=== PATIENT | female | born 2000 | race Caucasian/White ===

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

== ENCOUNTER → 2021-06-07 01:46 | Outpatient (CLI) | payer OTHER, MEDICAID, SELFPAY ==
[2021-06-07 17:55] LABS: SARS-CoV-2 RNA PCR Negative
== END ==
PROVIDERS: PCP Pediatrics; Visit Provider Pediatrics
DX: Z20.822 Contact with and (suspected) exposure to COVID-19 (principal)
CPT/HCPCS: C9803; U0003; U0005

== ENCOUNTER 2024-04-01 10:09 | Outpatient (CLI) | payer OTHER, SELFPAY ==
--- NOTE | ~2024-04-01 | US_ITS ---
EXAMINATION: US OB <=14 wk fetus w TV DATE: 04/01/2024 11:15 INDICATION: Confirm viability during first trimester . TECHNIQUE: Real-time pelvic ultrasound utilizing both a transvaginal and transabdominal probe was pe rformed. The interpreting radiologist was not present for the study. COMPARISON: None. FINDINGS: The uterus measures 10.2 x 4.2 x 5.5 cm. There is an intrauterine gestational sac. A yolk sac and fe jose elias pole are identified. The crown rump length measures 8 mm, which correlates with an estimated gest ational age of 6 weeks and 1 days. heart motion is identified measuring 129 beats per minute (b pm) by M-mode Doppler. The right ovary measures 3.0 x 1.7 x 1.6 cm. The left ovary measures 2.9 x 2.7 x 1.7 cm. Vascular jed w with arterial waveforms identified at both ovaries. There is no free fluid in the pelvis. IMPRESSION: 1. Single living fetus with heart rate of 129 bpm. 2. Gestational age by ultrasound of 6 weeks 1 day(s) +/- 4 day(s) with ultrasound estimated date of delivery (BREANNA) of 11/24/2024. Reviewed, dictated and finalized at location B. IMPRESSION: 1. Single living fetus with heart rate of 129 bpm. 2. Gestational age by ultrasound of 6 weeks 1 day(s) +/- 4 day(s) with ultraso und estimated date of delivery (BREANNA) of 11/24/2024.
== END 2024-04-01 10:10 | disposition home or self-care (01) ==
LOC: ANHIMG 10:13
PROVIDERS: PCP Pediatrics; Visit Provider Advanced Practice Midwife
DX: O36.80X0 Pregnancy with inconclusive fetal viability, not applicable or unspecified (principal); Z3A.00 Weeks of gestation of pregnancy not specified
CPT/HCPCS: 76801; 76817

== ENCOUNTER 2024-07-01 10:24 | Outpatient (CLI) | payer OTHER, SELFPAY ==
--- NOTE | ~2024-07-01 | US_ITS ---
EXAMINATION: US OB /maternal detail DATE: 07/01/2024 11:50 INDICATION: Encounter for screening. TECHNIQUE: Real-time ultrasound of the pelvis was performed. COMPARISON: Ultrasound 04/01/2024 FINDINGS: There is a single living fetus in vertex presentation. The placenta is anterior, 4.2 cm from the cer vix. heart rate is 139 beats per minute (bpm). The amniotic fluid index is 10.5, which is kai l. The cervical length is 3.0 cm on transabdominal images, which is normal. The following biometric data were obtained: Biparietal diameter (BPD): 4.5 cm; head circumference (HC): 17.0 cm; abdominal circumference (AC): 14 .3 cm; femur length (FL): 3.1 cm. These measurements are concordant. Estimated weight is 301 g +/- 45 g, which correlates with the 72nd percentile when 11/24/24 is u sed as estimated date of delivery. As single measurements, these parameters are each equal to the following estimated gestational ages: BPD: 19 weeks 5 days. HC: 19 weeks 4 days. AC: 19 weeks 4 days. FL: 19 weeks 3 days. estimated gestational age based solely on measurements from this exam is 19 weeks 4 days +/- 1 weeks 3 days. The cerebral ventricles, cerebellum, cisterna magna, nuchal fold, and spine are normal. The heart is normal. The diaphragm, stomach, kidneys, and bladder are normal. There are two umbilical arteries to yield a 3-vessel cord. The cord insertion is normal. IMPRESSION: 1. Single living fetus in vertex presentation. 2. Estimated weight is 301 g +/- 45 g, which correlates with the 72nd percentile when 11/24/24 is used as estimated date of delivery. This date was set by ultrasound on 04/01/2024. 3. Normal anatomic survey. Reviewed, dictated and finalized at location A. SHOVELER IMPRESSION: 1. Single living fetus in vertex presentation. 2. Estimated weight is 301 g +/- 45 g, which correlates with the 72nd pe rcentile when 11/24/24 is used as estimated date of delivery. This date was set by ultrasound on 04/01/2024. 3. Normal anatomic survey.
== END 2024-07-01 10:25 | disposition home or self-care (01) ==
PROVIDERS: PCP Pediatrics; Visit Provider Advanced Practice Midwife
DX: Z36.9 Encounter for antenatal screening, unspecified (principal)
CPT/HCPCS: 76805

== ENCOUNTER 2024-09-16 09:32 | Outpatient (CLI) | payer OTHER, SELFPAY | END 2024-09-16 09:33 | disposition home or self-care (01) | PROVIDERS: Visit Provider Nurse Practitioner Women's Health | DX: O36.63X0 Maternal care for excessive fetal growth, third trimester, not applicable or unspecified (principal); Z3A.00 Weeks of gestation of pregnancy not specified | CPT/HCPCS: 76816 ==

== ENCOUNTER 2024-10-22 23:03 | Observation (INO) | payer OTHER, SELFPAY ==
[2024-10-22 23:25] VITALS: PULSE 83; O2SAT 82
--- NOTE | 2024-10-22 23:25 | OBADM ---
This patient, Eun Johnson, admitted to the OB room Labor/Delivery/Recovery 105 for observation. Patient/family oriented to hospital policies and general routines including ID bracelet, bed and alarms, visiting hours, pain management, procedures, bathroom and other care routines, personal items, smoking policy, room service/diet, and visiting hours. Patient/Family are encouraged to report perceived risks to care and to ask questions if they do not understand what they are told or what they should do.
--- NOTE | 2024-10-22 23:25 | PC.NURSE ---
Addendum entered by Radha Claire RN 10/22/24 23:33: Abdomen palpates soft Original Note: Pt is a presenting to L&D with complaints of contractions every 10 minutes, rectal pressure and n/v since approx 2130 this evening. Pt denies any complications this . Pt denies any vaginal bleeding or LOF. Pt states she doesn't drink a lot of water and has had intercourse in the past 24 hours. Pt has been given marker and instructed to lorraine when she feels a contraction. Pt verbalizes understanding.
--- OUTSIDE RECORDS SUMMARY | 2024-10-22 23:25 | XMS_ITS | Clinical Summary ---
Author Organization [facility] Address [address] [place] [address] Care Team Providers Care Dielectric Press Operator Name Role Phone Tacho Uribe MD Primary Care Provider Allergies No known active allergies Medications dextroamphetamine/ amphetamine (ADDERALL ORAL) Take 20 mg by mouth daily Active acetaminophen (TYLENOL) 500 mg tablet Take 1-2 tablets (500-1,000 mg total) by mouth every 6 (six) hours as needed for pain (1 tablet for mild to moderate pain. 2 tablets for severe pain) 30 tablet 2 Active ibuprofen (ADVIL,MOTRIN) 600 mg tablet Take 1 tablet (600 mg total) by mouth every 6 (six) hours as needed for pain 15 tablet 2 Active ondansetron ODT (ZOFRAN-ODT) 4 mg disintegrating tablet Take 1 tablet (4 mg total) by mouth every 8 (eight) hours as needed for nausea or vomiting 20 tablet 3 Active benzonatate (TESSALON) 100 mg capsuleIndications :Cough Take 1 capsule (100 mg total) by mouth every 8 (eight) hours 21 capsule 3 Active albuterol HFA (PROVENTIL HFA,VENTOLIN HFA,PROAIR HFA) 90 mcg/actuation inhaler Inhale 2 puffs every 4 (four) hours as needed for shortness of breath 1 each 3 Active Active Problems No known active problems Social History Tobacco Use Types Packs/Day Years Used Date Smoking Tobacco: Never Assessed Personal Safety Answer Date Recorded Have you ever been in or are you currently in a harmful physical or emotional relationship or is someone making you feel afraid or unsafe? Denies 11/16/2023 Comments No Sex and Gender Information Value Date Recorded Sex Assigned at Not on file Legal Sex Female 6:50 AM DUMPMAN Gender Identity Not on file Sexual Orientation Not on file Obstetrics History Last Filed Vital Signs Vital Sign Reading Time Taken Comments Blood Pressure 115/80 11/16/2023 11:00 AM CDT Pulse 58 11/16/2023 11:00 AM CDT Temperature 36.7 C (98.1 F) 11/16/2023 11:00 AM CDT Respiratory Rate 18 11/16/2023 11:00 AM CDT Oxygen Saturation 98% 11/16/2023 11:00 AM CDT Inhaled Oxygen Concentration - - Weight 113.4 kg (250 lb) 11/16/2023 6:14 AM CDT Height 160 cm (5' 3 ) 11/16/2023 6:14 AM CDT Body Mass Index 44.29 11/16/2023 6:14 AM CDT Plan of Treatment Health Maintenance Due Date Last Done Comments Cervical Cancer Screening 2001 Depression Screening 2001 Hepatitis C Screening 2001 Regular Well Visit/Exam 18-64 2019 DTaP/Tdap/Td Vaccine (7 - Td or Tdap) 03/05/2023 03/05/2013, 02/21/2006, 05/30/2002, Additional history exists Covid-19 Vaccine (2 - 2023-2 5 season) 2024 09/20/2020 Influenza Vaccine (#1) 2024 8, 06/01/2017, 03/24/2016, Additional history exists Hepatitis B Screening Completed 03/06/2002 , 2001, 2001 Pneumococcal vaccine <65 Completed 002, 2001, 2001, Additional history exists Varicella Vaccines Completed 11/03/2008, 03/06/2002 HPV Vaccines Completed 03/24/2015, 03/05/2013 Meningococcal B Vaccine Completed 05/20/2018, 04/[address] [place] [address] [facility] Care Teams Dielectric Press Operator Relationship Specialty Start Date End Date Tacho Uribe MD [address] [place] [id number] PCP - General Pediatrics 09/21/20
--- OUTSIDE RECORDS SUMMARY | 2024-10-22 23:25 | XMS_ITS | Referral Summary ---
Author Organization [facility] Address [address] [place] [address] Care Team Providers Care Online Services Manager Name Role Phone Tacho Uribe MD Primary [...] on file Legal Sex Female 6:50 AM COMMUNITY DEVELOPMENT MANAGER Gender Identity Not on file Sexual Orientation Not on file Last Filed Vital Signs Vital Sign Reading [...] 11/16/2023 6:14 AM CDT Plan of Treatment Not on file Insurance Care Teams Online Services Manager Relationship Specialty Start Date End Date Tacho Uribe MD [address] [place] [address] PCP - General Pediatrics 09/21/20
[2024-10-22 23:30] VITALS: BP 131/87; PULSE 87; PULSE 92; O2SAT 99
[2024-10-22 23:33] VITALS: PULSE 92; O2SAT 100
[2024-10-22 23:35] VITALS: RESP 20; TEMP 36.6
[2024-10-22 23:38] VITALS: PULSE 85; O2SAT 100
[2024-10-22 23:41] VITALS: PULSE 102; O2SAT 100
--- NOTE | 2024-10-27 09:12 | PM.OBTRLD ---
OB - Triage/Final Diagnosis Visit Information Reason for evaluation: threatened labor Comments/Additional reasons for admission: I have assessed the risk for this patient, Eun Johnson, and determined that she would benefit from observation care.
== END 2024-10-22 23:55 | disposition home or self-care (01) ==
PROVIDERS: Admitting Provider Obstetrics & Gynecology Gynecology; Visit Provider Obstetrics & Gynecology Gynecology
DX: O47.03 False labor before 37 completed weeks of gestation, third trimester (principal); Z3A.36 36 weeks gestation of pregnancy
CPT/HCPCS: 59025; G0379

== ENCOUNTER 2024-10-27 07:15 | Outpatient (CLI) | payer OTHER, SELFPAY ==
--- NOTE | ~2024-10-27 | US_ITS ---
EXAMINATION: US OB follow up DATE: 10/27/2024 08:38 INDICATION: Expected size greater than expected for 36 weeks estimated gestational age TECHNIQUE: Real-time ultrasound of the pelvis was performed. The interpreting radiologist was not pre sent for the study. COMPARISON: 09/16/2024 FINDINGS: There is a single living fetus in vertex presentation. The placenta is anterior. heart rate is 132 beats per minute (bpm). The amniotic fluid index is 8.1 cm, which is normal. (5th%-95%: 7.7-24. 9 cm at 36 weeks estimated gestational age). The following biometric data were obtained: BPD: 8.5 cm -> 34 weeks 2 days Head circumference: 31.9 cm -> 36 weeks 0 days Abdominal circumference: 31.5 cm -> 35 weeks 3 days Femur length: 6.8 cm -> 35 weeks 1 days These measurements are concordant. Head circumference to abdominal circumference ratio: 1.01 (normal range 0.93-1.10). Estimated weight: 2640 g (+/-) 396 g or 5 lbs. 13 oz. (+/-) 14 oz. IMPRESSION: 1. Single living fetus in vertex presentation with heart rate of 132 bpm. 2. Normal amniotic fluid index of 8.1 cm. 3. Estimated weight is 31st percentile by Hadlock criteria when 11/24/2024 is used as the estima kwaku date of delivery (BREANNA). This is decreased from 66th percentile on study dated 09/16/2024. Please co rrelate with clinical information or earlier ultrasounds for most accurate BREANNA. Reviewed, dictated and finalized at location A. IMPRESSION: 1. Single living fetus in vertex presentation with heart rate of 132 bpm. 2. Normal amniotic fluid index of 8.1 cm. 3. Estimated weight is 31st percentile by Hadlock criteria when 11/24/2024 is used as the estimated date of delivery (BREANNA). This is decreased from 66th p ercentile on study dated 09/16/2024. Please correlate with clinical information o r earlier ultrasounds for most accurate BREANNA.
--- OUTSIDE RECORDS SUMMARY | 2024-10-27 07:22 | XMS_ITS | Referral Summary ---
Author Organization 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
--- OUTSIDE RECORDS SUMMARY | 2024-10-27 07:22 | XMS_ITS | Clinical Summary ---
Author Organization [facility] Address [address] [place] [address] Care Team Providers Care Diver Assistant Name Role Phone Tacho Uribe MD Primary [...] on file Legal Sex Female 6:50 AM CHARGE OPERATOR Gender Identity Not on file Sexual Orientation [...] Meningococcal B Vaccine Completed 05/20/2018, 04/[address] [place] [address] [place] [address] [facility] Care Teams Diver Assistant Relationship Specialty Start Date End Date Tacho Uribe MD [address] [place] [id number] PCP - General Pediatrics 09/21/20
== END 2024-10-27 07:16 | disposition home or self-care (01) ==
PROVIDERS: Visit Provider Obstetrics & Gynecology Gynecology
DX: O36.63X0 Maternal care for excessive fetal growth, third trimester, not applicable or unspecified (principal); Z3A.00 Weeks of gestation of pregnancy not specified
CPT/HCPCS: 76816

== ENCOUNTER 2024-10-28 11:38 | Outpatient (CLI) | payer OTHER, SELFPAY ==
[2024-10-28 12:07] LABS: Basophils Percent Auto 0.3 % (0.2-1.2); Eosinophils Absolute Auto 0.1 K/mm3 (0-0.3); Eosinophils Percent Auto 0.9 % (0-4.4); Hematocrit 36.3 % (37.0-47.0); Immature Granulocyte Absolute 0.07 K/mm3 (0.00-0.031); Immature Granulocyte Percent A 0.7 % (0-0.5); Lymphocytes Absolute Auto 1.87 K/mm3 (0.9-3.2); Lymphocytes Percent Auto 17.8 % (18.3-44.2); Mean Corpuscular HGB Conc 33.1 g/dl (32-36); Mean Corpuscular Hemoglobin 29.5 pg (26-34); Mean Corpuscular Volume 89.2 fl (80-100); Mean Platelet Volume 11.4 fl (7.4-10.4); Monocytes Absolute Auto 0.6 K/mm3 (0.1-0.6); Monocytes Percent Auto 5.4 % (2.6-8.5); Neutrophils Absolute Auto 7.9 K/mm3 (1.3-6.7); Neutrophils Percent Auto 74.9 % (45.5-73.1); Platelet Count Result 207 k/mm3 (150-375); Red Blood Count 4.07 M/mm3 (4.2-5.4); Red Cell Distribution Width 12.8 % (11.5-14.5); White Blood Count 10.5 K/mm3 (4.5-10.0)
[2024-10-28 12:08] LABS: Add Urine Microscopic? YES; Appearance Urine Turbid (Clear); Bacteria Urine None Seen /hpf; Bilirubin Urine Negative (Negative); Blood Urine 2+ (Negative); Color Urine Yellow (Yellow); Glucose Urine UA Negative (Negative); Ketones Urine Negative (Negative); Leukocyte Esterase Ur Negative LEU/UL (Negative); Nitrate Urine Negative (Negative); Non Pathogenic Casts 0-2; Protein Urine Trace mg/dL (Negative); RBC Urine 0-2 /hpf (0-2); Specific Grav Ur 1.019 (1.001-1.035); Squamous Epithelial Cell Urine Occasional /hpf (Few); WBC Urine 0-5 /hpf (0-3); pH Urine 7.5 (5.0-9.0)
[2024-10-28 12:16] LABS: Alanine Aminotransferase 12 U/L (6-35); Albumin Level 3.5 g/dL (3.5-5.1); Alkaline Phosphatase 164 U/L (38-126); Anion Gap 9 mmol/L (4-12); Aspartate Amino Transferase 17 U/L (14-36); Bilirubin,Total 0.4 mg/dL (0.2-1.3); Blood Urea Nitrogen 7 mg/dL (7-17); Carbon Dioxide 19 mmol/L (22-30); Chloride 108 mmol/L (98-107); Estimated Glomerular Filt Rate > 60; Glucose 117 mg/dL (65-110); Sodium 136 mmol/L (137-145)
[2024-10-28 12:17] VITALS: BP 121/68; PULSE 93
[2024-10-28 12:29] LABS: Creatinine Urine 104.9 mg/dL; Total Protein Urine Random 11 mg/dL
[2024-10-28 12:31] VITALS: BP 106/73; PULSE 100
--- NOTE | 2024-10-28 12:35 | PC.NURSE ---
Dr. Liriano notified of pt labs, urine and blood pressure. MD wants pt to start 24hour urine once pt bleeding has stopped. Dr. Kulkarni ok with pt going home.
[2024-10-28 12:45] VITALS: BP 121/68; PULSE 87
[2024-10-28 12:48] VITALS: BMI 48.4
--- OUTSIDE RECORDS SUMMARY | 2024-10-28 12:54 | XMS_ITS | Referral Summary ---
Author Organization [facility] Address [address] [place] [address] Care Team Providers Care President [employer] Name Role Phone Tacho Uribe MD Primary [...] on file Legal Sex Female 6:50 AM CARDIOVASCULAR OR NURSE Gender Identity Not on file Sexual Orientation [...] Treatment Not on file Insurance Care Teams President [employer] Relationship Specialty Start Date End Date Tacho Uribe MD [address] [place] [address] PCP - General Pediatrics 09/21/20
--- OUTSIDE RECORDS SUMMARY | 2024-10-28 12:54 | XMS_ITS | Clinical Summary ---
Author Organization [facility] Address [address] [place] [address] Care Team Providers Care Conservation Engineer Name Role Phone Tacho Uribe MD Primary [...] on file Legal Sex Female 6:50 AM PURIFICATION DIRECTOR Gender Identity Not on file Sexual Orientation [...] Meningococcal B Vaccine Completed 05/20/2018, 04/[address] [place] [address] [facility] Care Teams Conservation Engineer Relationship Specialty Start Date End Date Tacho Uribe MD [address] [place] [id number] PCP - General Pediatrics 09/21/20
== END 2024-10-28 12:45 | disposition home or self-care (01) ==
LOC: ANHOBOP 11:41 → ANHOBPP 11:49
PROVIDERS: Visit Provider Obstetrics & Gynecology Gynecology
DX: O26.899 Other specified pregnancy related conditions, unspecified trimester (principal); R03.0 Elevated blood-pressure reading, without diagnosis of hypertension
CPT/HCPCS: 36415; 59025; 80053; 81001; 82570; 84156; 84550; 85025; 99199

== ENCOUNTER 2024-10-29 20:47 | Outpatient (NON) | payer OTHER, SELFPAY ==
[2024-10-29 20:47] VITALS: BMI 48.3
--- OUTSIDE RECORDS SUMMARY | 2024-10-29 20:59 | XMS_ITS | Clinical Summary ---
Author Organization [facility] Address [address] [place] [address] Care Team Providers Care Nurse Staff Name Role Phone Tacho Uribe MD Primary [...] on file Legal Sex Female 6:50 AM ICT SUPPORT ENGINEER Gender Identity Not on file Sexual Orientation [...] Meningococcal B Vaccine Completed 05/20/2018, 04/[address] [place] [address] [place] [address] [facility] Care Teams Nurse Staff Relationship Specialty Start Date End Date Tacho Uribe MD [address] [place] [address] PCP - General Pediatrics 09/21/20
--- OUTSIDE RECORDS SUMMARY | 2024-10-29 20:59 | XMS_ITS | Referral Summary ---
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
[2024-10-29 22:03] LABS: Collection Time Urine 24 HOURS; Total Volume 24 Hour Urine 1000 ml
[2024-10-29 22:04] LABS: Patient Weight 290 Lbs
[2024-10-29 22:13] LABS: Total Protein Urine 24 Hr 100 mg/24hr (28-141); Total Protein Urine Random 10 mg/dL
[2024-10-29 22:16] LABS: Creatinine Clearance Urine 74.6 ml/min (75-125); Serum Creat 0.67
== END 2024-10-29 20:48 | disposition home or self-care (01) ==
LOC: ANHOBOP 20:58
PROVIDERS: Visit Provider Obstetrics & Gynecology Gynecology
DX: O13.9 Gestational [pregnancy-induced] hypertension without significant proteinuria, unspecified trimester (principal); Z3A.00 Weeks of gestation of pregnancy not specified
CPT/HCPCS: 81050; 82575; 84156

== ENCOUNTER 2024-11-01 23:46 | Outpatient (CLI) | payer OTHER, SELFPAY ==
--- OUTSIDE RECORDS SUMMARY | 2024-11-01 23:52 | XMS_ITS | Referral Summary ---
Author Organization [facility] Address [address] [place] [address] Care Team Providers Care Tax Accounting Assistant Name Role Phone Tacho Uribe MD [...] on file Legal Sex Female 6:50 AM INSIDE SALES ADMINISTRATOR Gender Identity Not on file Sexual Orientation [...] Treatment Not on file Insurance Care Teams Tax Accounting Assistant Relationship Specialty Start Date End Date Tacho Uribe MD [address] [place] [address] PCP - General Pediatrics 09/21/20
--- OUTSIDE RECORDS SUMMARY | 2024-11-01 23:52 | XMS_ITS | Clinical Summary ---
Author Organization [facility] Address [address] [place] [address] Care Team Providers Care Professional Fee Coder Name Role Phone Tacho Uribe MD Primary [...] on file Legal Sex Female 6:50 AM VIDEO LIBRARY ASSISTANT Gender Identity Not on file Sexual Orientation [...] Meningococcal B Vaccine Completed 05/20/2018, 04/[address] [address] [facility] Care Teams Professional Fee Coder Relationship Specialty Start Date End Date Tacho Uribe MD [address] [place] [id number] PCP - General Pediatrics 09/21/20
[2024-11-02 00:20] LABS: Add Urine Microscopic? NO; Appearance Urine Clear (Clear); Bilirubin Urine Negative (Negative); Blood Urine Negative (Negative); Color Urine Yellow (Yellow); Glucose Urine UA Negative (Negative); Ketones Urine Negative (Negative); Leukocyte Esterase Ur Negative LEU/UL (Negative); Nitrate Urine Negative (Negative); Protein Urine Negative (Negative); Specific Grav Ur 1.013 (1.001-1.035)
[2024-11-02 00:21] LABS: Basophils Percent Auto 0.3 % (0.2-1.2); Eosinophils Absolute Auto 0.1 K/mm3 (0-0.3); Hematocrit 36.3 % (37.0-47.0); Hemoglobin 12.3 g/dL (12.0-15.0); Immature Granulocyte Absolute 0.13 K/mm3 (0.00-0.031); Immature Granulocyte Percent A 1.1 % (0-0.5); Lymphocytes Absolute Auto 2.69 K/mm3 (0.9-3.2); Lymphocytes Percent Auto 22.2 % (18.3-44.2); Mean Corpuscular HGB Conc 33.9 g/dl (32-36); Mean Corpuscular Hemoglobin 29.4 pg (26-34); Mean Corpuscular Volume 86.6 fl (80-100); Mean Platelet Volume 11.4 fl (7.4-10.4); Monocytes Absolute Auto 0.9 K/mm3 (0.1-0.6); Monocytes Percent Auto 7.2 % (2.6-8.5); Neutrophils Absolute Auto 8.3 K/mm3 (1.3-6.7); Neutrophils Percent Auto 68.2 % (45.5-73.1); Platelet Count Result 225 k/mm3 (150-375); Red Blood Count 4.19 M/mm3 (4.2-5.4); Red Cell Distribution Width 12.5 % (11.5-14.5); White Blood Count 12.1 K/mm3 (4.5-10.0)
[2024-11-02 00:25] LABS: Creatinine Urine 79.8 mg/dL; Total Protein Urine Random 15 mg/dL; Ur Ttl Prot Creatinine Ratio 0.19 mg/mg (0-0.20)
[2024-11-02 00:37] LABS: Alanine Aminotransferase 12 U/L (6-35); Albumin Level 3.6 g/dL (3.5-5.1); Alkaline Phosphatase 177 U/L (38-126); Anion Gap 11 mmol/L (4-12); Aspartate Amino Transferase 16 U/L (14-36); Bilirubin,Total 0.3 mg/dL (0.2-1.3); Blood Urea Nitrogen 8 mg/dL (7-17); Calcium 8.9 mg/dL (8.4-10.2); Carbon Dioxide 18 mmol/L (22-30); Chloride 105 mmol/L (98-107); Estimated Glomerular Filt Rate > 60; Glucose 102 mg/dL (65-110); Potassium 3.8 mmol/L (3.4-5.0); Sodium 134 mmol/L (137-145); Uric Acid 5.2 mg/dL (2.5-7.5)
[2024-11-02 01:23] VITALS: BP 138/69; PULSE 94
[2024-11-02 01:33] LABS: OBXCEM ROM Plus Negative (Negative)
== END 2024-11-02 01:15 | disposition home or self-care (01) ==
LOC: ANHOBOP 23:51 → ANHLDR 23:53
PROVIDERS: Visit Provider Obstetrics & Gynecology Gynecology
DX: O26.899 Other specified pregnancy related conditions, unspecified trimester (principal); R51.9 Headache, unspecified; Z3A.00 Weeks of gestation of pregnancy not specified
CPT/HCPCS: 36415; 59025; 80053; 81003; 82570; 84112; 84156; 84550; 85025; 99199

== ENCOUNTER 2024-11-10 17:35 | Outpatient (CLI) | payer OTHER, SELFPAY ==
[2024-11-10] VITALS (14 sets, daily range): BP systolic 120–131; BP diastolic 65–76; PULSE 77–101; O2SAT 94–100; BMI 48.2
[2024-11-10 18:21] LABS: Basophils Percent Auto 0.3 % (0.2-1.2); Eosinophils Absolute Auto 0.2 K/mm3 (0-0.3); Eosinophils Percent Auto 2.2 % (0-4.4); Hematocrit 36.5 % (37.0-47.0); Immature Granulocyte Absolute 0.08 K/mm3 (0.00-0.031); Immature Granulocyte Percent A 0.7 % (0-0.5); Lymphocytes Absolute Auto 2.04 K/mm3 (0.9-3.2); Lymphocytes Percent Auto 19.1 % (18.3-44.2); Mean Corpuscular HGB Conc 32.9 g/dl (32-36); Mean Corpuscular Hemoglobin 29.2 pg (26-34); Mean Corpuscular Volume 88.8 fl (80-100); Monocytes Absolute Auto 0.9 K/mm3 (0.1-0.6); Monocytes Percent Auto 8.6 % (2.6-8.5); Neutrophils Absolute Auto 7.4 K/mm3 (1.3-6.7); Neutrophils Percent Auto 69.1 % (45.5-73.1); Platelet Count Result 221 k/mm3 (150-375); Red Blood Count 4.11 M/mm3 (4.2-5.4); White Blood Count 10.7 K/mm3 (4.5-10.0)
[2024-11-10 18:23] LABS: Add Urine Microscopic? NO; Appearance Urine Clear (Clear); Bilirubin Urine Negative (Negative); Blood Urine Negative (Negative); Color Urine Yellow (Yellow); Glucose Urine UA Negative (Negative); Ketones Urine Negative (Negative); Leukocyte Esterase Ur Negative LEU/UL (Negative); Nitrate Urine Negative (Negative); Protein Urine Negative (Negative); Specific Grav Ur 1.011 (1.001-1.035); Urobilinogen Urine 0.2 mg/dL (<2.0)
[2024-11-10 18:29] LABS: Creatinine Urine 70.7 mg/dL; Total Protein Urine Random 9 mg/dL; Ur Ttl Prot Creatinine Ratio 0.13 mg/mg (0-0.20)
[2024-11-10 18:33] LABS: Alanine Aminotransferase 12 U/L (6-35); Albumin Level 3.5 g/dL (3.5-5.1); Alkaline Phosphatase 206 U/L (38-126); Anion Gap 8 mmol/L (4-12); Aspartate Amino Transferase 15 U/L (14-36); Bilirubin,Total 0.4 mg/dL (0.2-1.3); Blood Urea Nitrogen 6 mg/dL (7-17); Calcium 8.8 mg/dL (8.4-10.2); Carbon Dioxide 20 mmol/L (22-30); Chloride 105 mmol/L (98-107); Estimated CRCL calculation 187 ml/min; Estimated Glomerular Filt Rate > 60; Glucose 94 mg/dL (65-110); Potassium 3.9 mmol/L (3.4-5.0); Sodium 133 mmol/L (137-145); Uric Acid 5.2 mg/dL (2.5-7.5)
--- OUTSIDE RECORDS SUMMARY | 2024-11-10 18:35 | XMS_ITS | Clinical Summary ---
Author Organization [facility] Address [address] [place] [address] Care Team Providers Care Transverse Abdominal Muscle Surgeon Name Role Phone Tacho Uribe MD Primary [...] on file Legal Sex Female 6:50 AM BEAM DOFFER Gender Identity Not on file Sexual Orientation [...] Meningococcal B Vaccine Completed 05/20/2018, 04/[address] [place] [address] [place] [address] [facility] Care Teams Transverse Abdominal Muscle Surgeon Relationship Specialty Start Date End Date Tacho Uribe MD [address] [place] [id number] PCP - General Pediatrics 09/21/20
--- OUTSIDE RECORDS SUMMARY | 2024-11-10 18:35 | XMS_ITS | Referral Summary ---
Author Organization [facility] Address [address] [place] [address] Care Team Providers Care Gravel Screener Name Role Phone Tacho Uribe MD Primary [...] on file Legal Sex Female 6:50 AM NUTRITION SERVICES MANAGER Gender Identity Not on file Sexual [...] Treatment Not on file Insurance Care Teams Gravel Screener Relationship Specialty Start Date End Date Tacho Uribe MD [address] [place] [address] PCP - General Pediatrics 09/21/20
--- NOTE | 2024-11-10 18:58 | PC.NURSE ---
Called Dr. Liriano, update on pt, headache, swelling, discoloration in feet, nausea, blood pressure, tracing, and labs. Orders received to discharge pt with instructions to take Tylenol 1000 mg every six hours as needed for headache, rest, keep next scheduled appointment, and when to return to the unit.
--- NOTE | 2024-11-10 19:08 | PC.NURSE ---
Pt discharged with instructions to take Tylenol 1000 mg every six hours as needed for headache, rest, keep next scheduled appointment, and when to return to the unit, pt denied taking hypertension in handout, pt verbalizes understanding.
--- OUTSIDE RECORDS SUMMARY | 2024-11-11 06:58 | XMS_ITS | Referral Summary ---
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
--- OUTSIDE RECORDS SUMMARY | 2024-11-11 06:58 | XMS_ITS | Clinical Summary ---
Author Organization [facility] Address [address] [place] [address] Care Team Providers Care Audio Visual Facilities Engineer Name Role Phone Tacho Uribe MD [...] on file Legal Sex Female 6:50 AM CAT SCANNER OPERATOR Gender Identity Not on file Sexual [...] Meningococcal B Vaccine Completed 05/20/2018, 04/[address] [place] [address] [facility] Care Teams Audio Visual Facilities Engineer Relationship Specialty Start Date End Date Tacho Uribe MD [address] [place] [id number] PCP - General Pediatrics 09/21/20
--- OUTSIDE RECORDS SUMMARY | 2024-11-11 07:35 | XMS_ITS | Referral Summary ---
Author Organization [facility] Address [address] [place] [address] Care Team Providers Care Blade Groover Name Role Phone Tacho Uribe MD Primary [...] on file Legal Sex Female 6:50 AM A P SUPERVISOR Gender Identity Not on file Sexual Orientation [...] Treatment Not on file Insurance Care Teams Blade Groover Relationship Specialty Start Date End Date Tacoh Uribe MD [address] [place] [address] PCP - General Pediatrics 09/21/20
--- OUTSIDE RECORDS SUMMARY | 2024-11-11 07:35 | XMS_ITS | Clinical Summary ---
Author Organization [facility] osp[facility] Address [address] [place] [address] Care Team Providers Care Breeding Technician Name Role Phone Tacho Uribe MD Primary [...] on file Legal Sex Female 6:50 AM EVENT ORGANIZER Gender Identity Not on file Sexual Orientation [...] Meningococcal B Vaccine Completed 05/20/2018, 04/[address] [place] [address] [facility] Care Teams Breeding Technician Relationship Specialty Start Date End Date Tacho Uribe MD [address] [place] [id number] PCP - General Pediatrics 09/21/20
== END 2024-11-10 19:08 | disposition home or self-care (01) ==
LOC: ANHOBPP 19:37 → ANHOBOP 11-11 07:28 → ANHOBPP 11-11 07:28
PROVIDERS: Visit Provider Obstetrics & Gynecology Gynecology
DX: O13.9 Gestational [pregnancy-induced] hypertension without significant proteinuria, unspecified trimester (principal); Z3A.00 Weeks of gestation of pregnancy not specified
CPT/HCPCS: 36415; 59025; 80053; 81003; 82570; 84156; 84550; 85025; 99199

== ENCOUNTER 2024-11-17 00:01 | Inpatient (IN) | payer OTHER, SELFPAY ==
[2024-11-17] VITALS (350 sets, daily range): BP systolic 83–138; BP diastolic 36–97; PULSE 59–160; TEMP 36.3–37.3; O2SAT 91–100; BMI 49.5
--- OUTSIDE RECORDS SUMMARY | 2024-11-17 00:07 | XMS_ITS | Referral Summary ---
Author Organization [facility] o[facility] Address [address] [place] [address] Care Team Providers Care Worm Sorter Name Role Phone Tacho Uribe MD Primary [...] on file Legal Sex Female 6:50 AM ASSISTANT MEDIA BUYER Gender Identity Not on file Sexual Orientation [...] Treatment Not on file Insurance Care Teams Worm Sorter Relationship Specialty Start Date End Date Tacho Uribe MD [address] [place] [address] PCP - General Pediatrics 09/21/20
--- OUTSIDE RECORDS SUMMARY | 2024-11-17 00:07 | XMS_ITS | Clinical Summary ---
Author Organization 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
--- NOTE | 2024-11-17 00:17 | LDADM ---
This patient, Eun Johnson, was admitted to Labor/Delivery/Recovery 105 on 11/17/24 at 00:01. Plans for labor, pain management and were discussed with patient. Patient/family oriented to hospital policies and general routines including ID bracelet, bed and alarms, visiting hours, pain management, procedures, bathroom and other care routines, personal items, smoking policy, room service/diet and guest tray routines, security routines, and visiting hours. Patient/Family are encouraged to report perceived risks to care and to ask questions if they do not understand what they are told or what they should do. See OBIX for further documentation.
[2024-11-17] MEDS: DINOPROSTONE 10 MG VAG INSERT VAGINAL (00:30)
[2024-11-17 00:38] LABS: Basophils Absolute Auto 0.1 K/mm3 (0.0-0.1); Basophils Percent Auto 0.5 % (0.2-1.2); Eosinophils Absolute Auto 0.3 K/mm3 (0-0.3); Hemoglobin 12.4 g/dL (12.0-15.0); Immature Granulocyte Absolute 0.11 K/mm3 (0.00-0.031); Lymphocytes Absolute Auto 2.43 K/mm3 (0.9-3.2); Lymphocytes Percent Auto 21.5 % (18.3-44.2); Mean Corpuscular HGB Conc 33.5 g/dl (32-36); Mean Corpuscular Hemoglobin 29.4 pg (26-34); Mean Corpuscular Volume 87.7 fl (80-100); Mean Platelet Volume 11.7 fl (7.4-10.4); Monocytes Percent Auto 8.6 % (2.6-8.5); Neutrophils Absolute Auto 7.4 K/mm3 (1.3-6.7); Neutrophils Percent Auto 65.4 % (45.5-73.1); Platelet Count Result 213 k/mm3 (150-375); Red Blood Count 4.22 M/mm3 (4.2-5.4); Red Cell Distribution Width 12.8 % (11.5-14.5); White Blood Count 11.3 K/mm3 (4.5-10.0)
[2024-11-17 01:28] LABS: HIV 1/2 Ab P24 Ag Result Negative (Negative)
[2024-11-17 01:31] LABS: Syphilis IgG/IgM Antibody Negative (Negative)
[2024-11-17] MEDS: OXYTOCIN 30 UNITS/NS 500 ML 30 UNITS/500 ML BAG 6 UNITS IV CONT (06:24)
[2024-11-17] MEDS: LACTATED RINGERS 1,000 ML 125 ML IV CONT ×3 (06:25→14:46)
--- NOTE | 2024-11-17 08:49 | WPDOBADMIT ---
Obstetrics - Admit Note Admission Note: record reviewed. No pertinent additions to the history and/or any subsequent changes in the physical findings that are not consistent with the expected course of the were found. Additions to the history and/or subsequent changes in the physical findings follow. Here for MIL. Cervix 150/-2. AROM with clear fluid. FHTs reactive. Continue MIL with pitocin.
[2024-11-17] MEDS: fentaNYL CITRATE INJ (*CRX) 100 MCG/2 ML VIAL 50 MCG IV PUSH (11:57)
--- NOTE | 2024-11-17 14:38 | P.PNAN_ITS ---
Anes - Initial Pre Proc Eval Date/Time: 11/17/24 14:38 Surgeon: Heidy Liriano MD Pre Op Diagnosis: IOL Patient Data Age: 24 Gender: F Height: 1.65 m Weight: 135 kg Last Vital Signs Temp 36.7 C 11/17/24 10:30 Pulse 76 11/17/24 14:30 BP 121/59 L 11/17/24 14:30 Pulse Ox 96 11/17/24 14:33 Allergies Allergy/AdvReac Type Severity Reaction Status Date / Time No Known Allergies Allergy Mild Verified 11/10/24 18:09 Home Medications ?Medication ?Instructions ?Recorded ?Confirmed ?Type vit no.95-ferrous 1 tablet PO DAILY 11/10/24 11/10/24 History fumarate 28 mg-folic acid 800 mcg tablet () Laboratory Tests 11/17/24 00:29 WBC 11.3 H K/mm3 (4.5-10.0) RBC 4.22 M/mm3 (4.2-5.4) Hgb 12.4 g/dL (12.0-15.0) Hct 37.0 % (37.0-47.0) MCV 87.7 fl (80-100) MCH 29.4 pg (26-34) MCHC 33.5 g/dl (32-36) RDW 12.8 % (11.5-14.5) Plt Count 213 k/mm3 (150-375) MPV 11.7 H fl (7.4-10.4) Immature Gran % (Auto) 1.0 H % (0-0.5) Neut % (Auto) 65.4 % (45.5-73.1) Lymph % (Auto) 21.5 % (18.3-44.2) Lumpkin % (Auto) 8.6 H % (2.6-8.5) Eos % (Auto) 3.0 % (0-4.4) Baso % (Auto) 0.5 % (0.2-1.2) Lymph # (Auto) 2.43 K/mm3 (0.9-3.2) Lumpkin # (Auto) 1.0 H K/mm3 (0.1-0.6) Eos # (Auto) 0.3 K/mm3 (0-0.3) Baso # (Auto) 0.1 K/mm3 (0.0-0.1) Abs Immat Gran (auto) 0.11 H K/mm3 (0.00-0.031) Absolute Neuts (auto) 7.4 H K/mm3 (1.3-6.7) Absolute Nucleated RBC 0.000 K/mm3 (0.0-0.012) Nucleated RBC % 0.0 % (0.0-0.2) Syphilis IgG/IgM Ab Negative (Negative) HIV 1&2 Ab/P24 Ag 4thGn Negative (Negative) Blood Type O Positive Antibody Screen Negative Patient hx anesthesia problems: none Family hx anesthesia problems: none Results Review: All pre-operative results and documents have been reviewed as part of the pre- operative evaluation. [facility] Family History Family History Grandparent Ovarian cancer Father Diabetes mellitus Grandparent No problems noted. Other No problems noted. Sibling Down's syndrome Social History Social History Smoking status: Never smoker Substance use: never Do You Feel Safe in your Home?: Yes Lack of Transportation: No Lack of Food: Never True Current Housing: I Have Housing Concerned About Future Housing: No Difficulty Paying Gas/Electric Bills: No Difficulty Paying for Meds: No Currently Unemployed: No Education: High School Diploma/GED Difficulty w/ Childcare or Family Care: No Spiritual care concerns: No Anes - Eval Final PreProcedure Day of Procedure 11/17/24 14:38 Patient weight: morbidly obese Heart: regular rate and rhythm Lungs: clear to auscultation Neurological: alert and oriented ASA classification: III Emergent: no Anesthetic plan: proceed Anesthesia type and monitoring: regional epidural and standard monitoring Results Review: All pre-operative results and documents have been reviewed as part of the pre- operative evaluation. Informed Consent: The patient's anesthetic plan and its attendant risks and benefits were discussed with the patient/family/POA. Questions were solicited and answers provided to the satisfaction of the patient/family/POA.
[2024-11-17] MEDS: SODIUM CHLORIDE 0.9% IV 300 ML 600 ML I-UTERINE (18:29)
[2024-11-17] MEDS: SODIUM CHLORIDE 0.9% IV 1,000 ML 150 ML I-UTERINE (19:05)
[2024-11-17] MEDS: ACETAMINOPHEN 500 MG TABLET 1000 MG PO (22:31)
[2024-11-18] VITALS (52 sets, daily range): BP systolic 63–138; BP diastolic 49–86; PULSE 80–171; RESP 16–18; TEMP 36.6–36.8; O2SAT 97–100
--- NOTE | 2024-11-18 00:52 | P.PCNOB_ITS ---
OB - Vaginal Delivery Note Procedure Delivery date: 11/18/24 Events: Elective Induction of Labor Induction method: AROM and Per Pitocin Protocol Delivery monitor: Internal FHT and Internal Uterine Route of delivery: Laceration Description: Periurethral and Superficial Delivery repair: vicryl (3-0 ) Specimen: Yes (placenta) Quantitative Blood Loss (ml): 350 Anesthesia type: Epidural Disposition: Floor Complications: No immediate complications [place] Baby Date of : 11/18/24 Gestational Age by Date: 39 Infant gender: Male presentation: vertex position: Right Occiput Anterior Placenta delivery description: Spontaneous Cord Vessel Description: 3 Vessels, Nuchal Cord, Tight, Delayed Cord Clamping, Around Body, Around Extremity and Other (cord around neck, body, and through legs and around leg-tight at delivery) score one minute: 7 score five minutes: 9
--- NOTE | 2024-11-18 00:54 | PM.OBDSVD ---
DS: Admitting Diagnosis Discharge Date 11/19/24 Admitting Diagnosis Iup 39 wks for ROSA ISELA DS: Discharge Diagnosis Discharge Diagnosis (1) (normal spontaneous vaginal delivery): Code(s): O80 - Encounter for full-term uncomplicated delivery Status: Acute OB - DS: Summary OB Procedures : Ultrasound OB Procedures Intrapartum: Spontaneous Vag Delivery OB Procedures: : None Peripartum Data Infant Delivery Method: Natural Vaginal Laceration Description: Periurethral and Superficial complications: none Status at Discharge Functional status at discharge: independent ambulation Overall status at discharge: patient is progressing back to baseline Time Spent with Patient Time attestation: Total time spent providing and/or coordinating discharge services: DS: Data Data Completed and Pending Labs on day of discharge: Labs from last 24 hours 11/17/24 00:29 Syphilis IgG/IgM Ab Negative HIV 1&2 Ab/P24 Ag 4thGn Negative Blood Type O Positive Antibody Screen Negative Discharge Plan Discharge Attending physician on discharge: Heidy Liriano Discharging Clinician: Heidy Liriano Anticipated Discharge Date/Time: 11/20/24 00:54 Patient Disposition: Home Activity: may shower and pelvic rest Diet: regular Patient Instructions: Antibiotic Form Patient Language: Amharic Stand Alone Forms: General Discharge Information Follow-up/Referrals: Heidy Liriano MD [Physician] - 6 Weeks Discharge Medications: Continued PNV cmb#95-ferrous fumarate-FA [] 28 mg iron- 800 mcg tablet 1 tablet PO DAILY Date of admission: 11/17/24 00:01 Primary Care Provider: UNKNOWN,DOCTOR Admitting Provider: Heidy Liriano Attending physician on admission: Heidy Liriano Condition: Stable Care Plan Goals: Plans condoms until Liletta IUD placed
[2024-11-18] MEDS: OXYTOCIN 30 UNITS/NS 500 ML 30 UNITS/500 ML BAG 125 UNITS IV CONT (01:41)
[2024-11-18] MEDS: BENZOCAINE 20% AER SPR (*SP) 56 GM CAN 1 SPRAY TOPICAL (03:31)
[2024-11-18] MEDS: WITCH HAZEL 40 PADS 1 PAD TOPICAL (03:32)
--- NOTE | 2024-11-18 12:17 | P.PNOB_ITS ---
OB - PN: Subj Subjective Date/time seen: 11/18/24 12:17 Patient comments: no complaints and pain well controlled baby status: doing well OB - PN: Obj Data Labs 11/17/24 00:29 OB - PN A/P Plan day: 0 Plan: routine care Time Spent With Patient Time: Total time spent is greater than 50% in coordination of care (as documented) at patient's floor/unit and/or counseling patient: Exam 2 : Bimanual exam- vagina & uterus: other (Uterus firm, nt @U)
[2024-11-18] MEDS: IBUPROFEN 600 MG TABLET PO (13:28)
[2024-11-18] MEDS: DOCUSATE SODIUM 100 MG CAPSULE PO (15:53)
[2024-11-19 05:19] LABS: Hematocrit 33.9 % (37.0-47.0); Hemoglobin 10.8 g/dL (12.0-15.0)
[2024-11-19] MEDS: IBUPROFEN 600 MG TABLET PO (07:03)
[2024-11-19 07:35] VITALS: BP 116/66; PULSE 88; RESP 16; TEMP 36.6; O2SAT 99
--- NOTE | 2024-11-19 07:35 | P.PNOB_ITS ---
OB - PN: Subj Subjective Date/time seen: 11/19/24 07:35 Patient comments: no complaints and pain well controlled baby status: doing well OB - PN: Obj Data Labs 11/19/24 03:59 Labs: Laboratory Results - last 24 hr 11/19/24 03:59 Hgb 10.8 L Hct 33.9 L OB - PN A/P Plan day: 1 Plan: routine care, discharge home, follow up 6 weeks and other (Plans Liletta IUD) Time Spent With Patient Time: Total time spent is greater than 50% in coordination of care (as documented) at patient's floor/unit and/or counseling patient: Exam 2 : Bimanual exam- vagina & uterus: other (Uterus firm, nt @U)
--- NOTE | 2024-11-19 07:56 | PC.NURSE ---
Patient viewed the discharge video Mother & Baby Care, The First Two Weeks . Patient was given the opportunity and encouraged to ask questions. Patient verbalized understanding of information shared and has been given the mother/baby guide for home reference.
[2024-11-20 11:23] VITALS: BP 128/81; PULSE 93; RESP 20; TEMP 36.6; O2SAT 100
== END 2024-11-19 17:15 | disposition home or self-care (01) | DRG 560 ==
LOC: ANHLDR 11-18 00:55 → ANHOB2 11-18 03:19
PROVIDERS: Admitting Provider Obstetrics & Gynecology Gynecology; Visit Provider Obstetrics & Gynecology Gynecology
DX: O69.2XX0 Labor and delivery complicated by other cord entanglement, with compression, not applicable or unspecified (principal); Z37.0 Single live birth; Z3A.39 39 weeks gestation of pregnancy; O71.82 Other specified trauma to perineum and vulva
CPT/HCPCS: 36415; 85014; 85018; 85025; 86593; 86703; 86850; 86900; 86901; 88307; A9270; G0432; J2590; J2795; J3010; J7030; J7120

== ENCOUNTER 2025-04-07 23:27 | Emergency (ER) | payer OTHER, SELFPAY ==
[2025-04-07 23:36] VITALS: BP 129/91; PULSE 87; RESP 16; TEMP 36.9; O2SAT 100
[2025-04-08 00:04] LABS: Strep Group A RT-PCR NOT DETECTED (Negative)
[2025-04-08 00:16] LABS: Influenza A QL RT-PCR Negative (Negative); Influenza B QL RT-PCR Negative (Negative); RSV RNA, RT-PCR Negative (Negative); SARS-CoV-2 RNA PCR Negative (Negative)
--- OUTSIDE RECORDS SUMMARY | 2025-04-08 00:41 | XMS_ITS | Clinical Summary ---
Author Organization [facility] Address [address] [place] [address] Care Team Providers Care Superintendent Mechanical Name Role Phone Tacho Uribe MD Primary Care Provider [phone] Source Comments [facility],non-owned Affiliates and Associated Physician Practices is amultiple site organization consisting of ambulatory clinics and hospital sitesin [place], [place], [place] and [place]. This disclosure is being madepursuant to the Care Everywhere program and may not contain all information available regarding this patient. Last updated 18.[facility] [place]ott Allergies No known active allergies Medications * This document contains information received from the source organization and may not represent a complete record from that organization. * Be aware that medications may not be up to date on this document. Alwaysverify current medications with the patient. 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 Gender Identity Not on file Sexual Orientation Not on file Last Filed Vital Signs Vital Sign Reading Time Taken Comments Blood Pressure 110/52 11/13/2012 10:45 PM CDT Pulse 104 11/13/2012 10:45 PM CDT Temperature 37.7 C (99.8 F) 11/13/2012 10:45 PM CDT Respiratory Rate 22 11/13/2012 10:45 PM CDT Oxygen Saturation 100% 11/13/2012 9:00 PM CDT Inhaled Oxygen Concentration - - Weight 50.9 kg (112 lb 3.4 oz) 11/13/2012 8:51 P M CDT Height - - Body Mass Index - - Plan of Treatment Health Maintenance Due Date Last Done Comments HIV SCREENING 02/28/2016 HPV VACCINE (1 - 3-dose series) 02/28/2016 CHLAMYDIA/GONORRHEA SCREENING 2017 HEPATITIS C SCREENING 02/23/2019 DTAP/TDAP/TD VACCINES (1 - Tdap) 02/28/2020 HEPATITIS B VACCINE (1 of 3 - 19+ 3-dose series) 02/28/2020 PAP SMEAR 2022 DEPRESSION SCREENING 07/16/2024 COVID-19 VACCINE (1 - 2023-2 5 season) 2025 INFLUENZA VACCINE (#1) 2025 ZOSTER VACCINE (1 of 2) 2051 HIB VACCINE Aged Out No longer eligi ble based on patient's age to complete this topic MENINGOCOCCAL (Group B) VACC INE SHARED DECISION-MAKING Aged Out No longer eligibl e based on patient's age to complete this topic MENINGOCOCCAL GROUPS A/C/Y/W VACCINE Aged Out No longer eligible b ased on patient's age to complete this topic PNEUMOCOCCAL VACCINE Aged Out No long er eligible based on patient's age to complete this topic Insurance [facility] SELF PAY NO INSURANCE Member Subscriber Plan / Payer (Ef fective for All Dates) Name:Eun Johnson Member ID:Not on file Relation to Subscriber:Not on file Name:EUN JOHNSON Subscriber ID:Not on file (Home) Address: [address] [place] [address] Payer ID:Not on file Group ID:Not on file Type:Self Pay Address: [place], [place] [facility] Care Teams Superintendent Mechanical Relationship Specialty Start Date End Date Tacho Uribe MD [address] [place] [address] PCP - General Pediatrics 11/13/12
--- OUTSIDE RECORDS SUMMARY | 2025-04-08 00:41 | XMS_ITS | Clinical Summary ---
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 Gender Identity Not on file Sexual Orientation [...] 6:14 AM CDT Height 160 cm (5' 3) 11/16/2023 6:14 AM CDT Body Mass Index 44.29 11/16/2023 6:14 AM CDT Plan of Treatment Health Maintenance Due Date Last Done Comments Cervical Cancer Screening 2001 Depression Screening 2001 Hepatitis C Screening 2001 Regular Well Visit/Exam 18-64 2019 DTaP/Tdap/Td Vaccine (7 - Td or Tdap) 03/05/2023 03/05/2013, 02/21/2006, 05/30/2002, Additional history exists Covid-19 Vaccine (2024-08 6 season) 2025 09/20/2020 Influenza Vaccine (#1) 2025 8, 06/01/2017, 03/24/2016, Additional history exists Hepatitis B Screening Completed 03/06/2002 , 2001, 2001 Pneumococcal vaccine <65 Completed 002, 2001, 2001, Additional history exists Varicella Vaccines Completed 11/03/2008, 03/06/2002 HPV Vaccines Completed 03/24/2015, 03/05/2013 Insurance [facility] Care Teams Client Care Representative Relationship Specialty Start Date End Date Tacho Uribe MD [address] [place] [address] PCP - General Pediatrics 09/21/20
--- NOTE | 2025-04-08 00:42 | ED_ITS ---
HPI - URI/Sore Throat General Chief Complaint: Upper Respiratory Infection Stated Complaint: sore throat and headached Time Seen by Provider: 04/08/25 00:34 History of Present Illness HPI Narrative: 25-year-old otherwise healthy female presenting with viral upper respiratory infection symptoms including sore throat, congestion and headache for 1 day. Her entire family is passing her on some sort of viral symptoms at home. No one tested positive for COVID flu at home. Endorses some pain with swallowing but no coughing, fever, throat swelling. No chest pain difficulty breathing. Has not tried anything for symptom control at home. Related Data Home Medications ?Medication ?Instructions ?Recorded ?Confirmed ?Last Taken ?Type vit no.95-ferrous 1 tablet PO DAILY 11/10/24 11/10/24 Unknown History fumarate 28 mg-folic acid 800 mcg tablet () Allergies Allergy/AdvReac Type Severity Reaction Status Date / Time No Known Allergies Allergy Mild Verified 11/10/24 18:09 Review of Systems Review of Systems: As reviewed above in HPI [facility] Family History Family History Grandparent Ovarian cancer Father Diabetes mellitus Grandparent No problems noted. Other No problems noted. Sibling Down's syndrome Social History Social History Smoking status: Never smoker Substance use: never Do You Feel Safe in your Home?: Yes Lack of Transportation: No Lack of Food: Never True Current Housing: I Have Housing Concerned About Future Housing: No Difficulty Paying Gas/Electric Bills: No Difficulty Paying for Meds: No Currently Unemployed: No Education: High School Diploma/GED Difficulty w/ Childcare or Family Care: No Spiritual care concerns: No Exam Narrative: GENERAL: [Well-appearing, well-nourished, and in no acute distress.] HEAD: [Normocephalic, atraumatic.] EYES: [PERRLA and EOMI.] ENT: Posterior oropharynx with some mild erythema but no exudates. Tonsillar enlargement but not touching and no signs of airway compromise, swelling, uvular edema or difficulty swallowing or any phonation changes. NECK: Supple. CHEST: [Clear to auscultation. No respiratory distress.] HEART: [Regular rate and rhythm]. No murmur heard. [Normal peripheral pulses.] ABDOMEN: [Soft, nondistended], [nontender], [No rigidity or guarding] EXTREMITIES: Normal range of motion. [No edema.] SKIN: Warm, dry, no rash. NEURO: [No focal deficits]. Alert and oriented [x3.] PSYCH: [Normal mood and affect.] Course Vital Signs Vital signs: Vital Signs Temperature 36.9 C 04/07/25 23:36 Pulse Rate 87 04/07/25 23:36 Respiratory Rate 16 04/07/25 23:36 Blood Pressure 129/91 H 04/07/25 23:36 Pulse Oximetry 100 04/07/25 23:36 Temperature 36.9 C 04/07/25 23:36 Pulse Rate 87 04/07/25 23:36 Respiratory Rate 16 04/07/25 23:36 Blood Pressure 129/91 H 04/07/25 23:36 Pulse Oximetry 100 04/07/25 23:36 MDM - URI/Sore Throat MDM Narrative Medical decision making narrative: 25-year-old otherwise healthy female presenting with viral upper respiratory infection symptoms including sore throat, congestion and headache for 1 day. He r entire family is passing her on some sort of viral symptoms at home. No one tested positive for COVID flu at home. Endorses some pain with swallowing but no coughing, fever, throat swelling. No chest pain difficulty breathing. Has not tried anything for symptom control at home. Patient presents with signs and symptoms of viral pharyngitis. Swab for strep throat as well as COVID flu RSV testing given family members being sick at home. She is afebrile with normal vital signs. Given intramuscular Decadron for pharyngitis. Swabs are negative. She will be discharged home with Tylenol and ibuprofen and instructed to follow-up with her PCP and given return precautions. Medical Records Attestation: I reviewed the patient's medical records. Lab Data Attestation: I reviewed the patient's lab results. Labs: Lab Results 04/07/25 04/07/25 Range/Units 23:32 23:33 Influenza A (RT-PCR) Negative (Negative) Influenza B (RT-PCR) Negative (Negative) RSV (RT-PCR) Negative (Negative) SARS-CoV-2 RNA (RT-PCR) Negative (Negative) Group A Strep (PCR) Not detected (Negative) Discharge Plan Discharge Clinical Impression: Acute viral pharyngitis Patient Disposition: Home Condition: Stable Instructions: Antibiotic Form, Pharyngitis (ED), Viral Syndrome (ED) Additional Instructions: Symptoms consistent with viral pharyngitis. He received a steroid here which will help the swelling and symptoms. We have prescribed Tylenol and ibuprofen for continued care at home. No indication for antibiotics her strep test was negative. COVID flu/RSV also negative. Symptoms usually last approximately 3-5 days. Return with any emergencies otherwise follow-up with regular doctor. Patient Language: Amharic Prescriptions: New acetaminophen [Tylenol Extra Strength] 500 mg tablet 1,000 mg PO TID PRN (Reason: pain) Qty: 30 0RF ibuprofen 600 mg tablet 600 mg PO TID PRN (Reason: pain) Qty: 20 0RF No Action PNV no.95-ferrous fumarate-FA [] 28 mg iron- 800 mcg tablet 1 tablet PO DAILY Follow-up/Referrals: PHYSICIAN,WASTEWATER TREATMENT SUPERVISOR [Primary Care Provider, Internal Medicine] Time of Disposition: 00:46
[2025-04-08] MEDS: dexAMETHasone SOD PHOS INJ 10 MG/ML 1 ML VIAL IM (00:52)
== END 2025-04-08 00:54 | disposition home or self-care (01) ==
PROVIDERS: Emergency Provider Student in an Organized Health Care Education/Training Program
DX: J02.9 Acute pharyngitis, unspecified (principal); Z20.822 Contact with and (suspected) exposure to COVID-19
CPT/HCPCS: 87637; 87651; 96372; 99283; J1100